=== PATIENT | male | born 1970 | race Caucasian/White ===

== ENCOUNTER 2017-05-28 07:45 | Emergency (ER) | payer SELFPAY ==
[~2017-05-28] VITALS: Ht 182.9 cm; Wt 102.0 kg
[~2017-05-28 07:45] MED LIST: AMOX/K CLAV875 M1 PO; AMOXICILLIN500 MG OR; DENIES CURRENT MEDS; LORTAB 10 PO; LORTAB 10-325 M1 TAB PO; MEDDOSEPAK PO; NAPROSYN500 MG PO; PREVACID30 M2 PO; ZITHROMAX250 MG PO; ZOFRAN ODT8 MG PO
[2017-05-28 08:38] LABS: HEMATOCRIT 48.6 % (39.0-50.0); IMMATURE GRANULOCYTES 0.4 % (0.0-1.0); MEAN CELL VOLUME 89.2 fL CALC (80.0-100.0); MEAN CORPUSCULAR HGB 31.2 pG CALC (26.0-32.0); NEUT# 7.1 thou/uL (1.82-7.42); RED BLOOD COUNT 5.45 mill/uL (4.70-6.10); RED CELL DISTRI WIDTH 12.5 % (11.5-15.5)
[2017-05-28 09:00] LABS: ALBUMIN 4.3 g/dL (3.2-5.0); ALKALINE PHOSPHATASE 62 u/l (38-126); ANION GAP 18 (6-22 (CALC)); BILIRUBIN, TOTAL 0.7 mg/dL (0.0-1.4); BUN 13 mg/dL (9-20); BUN/CREATININE RATIO 14 (12-20 (CALC)); CARBON DIOXIDE 27 mmol/l (22-30); CHLORIDE 102 mmol/l (95-108); CREATININE 0.9 mg/dL (0.7-1.3); GFR > 60 ML/MIN (>=60 (CALC)); GFR FOR AFR.AMER. > 60 ML/MIN (>=60 (CALC)); LIPASE 54 u/l (23-300); POTASSIUM 4.1 mmol/l (3.5-5.1); SGOT/AST 34 u/l (17-59); SGPT/ALT 55 u/l (21-72); SODIUM 143 mmol/l (137-146); TOTAL PROTEIN 8.1 g/dL (6.3-8.2)
[2017-05-28 10:15] LABS: URINE BILIRUBIN - DIPSTICK NEGATIVE (NEGATIVE); URINE BLOOD DIPSTICK NEGATIVE (NEGATIVE); URINE CLARITY CLEAR; URINE COLOR YELLOW; URINE GLUCOSE - DIPSTICK NEGATIVE (NEGATIVE); URINE KETONE NEGATIVE (NEGATIVE); URINE LEUK ESTERASE NEGATIVE (NEGATIVE); URINE NITRITE - DIPSTICK NEGATIVE (Negative); URINE PROTEIN - DIPSTICK NEGATIVE (NEG-TRACE); URINE UROBILINOGEN - DIPSTICK 0.2 E.U./dL (0.2)
[2017-05-28 10:18] VITALS: BP 117/77
[2017-05-28] MEDS ORDERED: RANITIDINE150 M1 PO (10:18)
== END 2017-05-28 10:23 | disposition home or self-care (01) | DRG 392 ==
LOC: ED 07:45
PROVIDERS: Family Medicine
DX: R10.84 Generalized abdominal pain (principal); F17.210 Nicotine dependence, cigarettes, uncomplicated
CPT/HCPCS: Q9967

== ENCOUNTER 2018-05-04 11:20 | Emergency (ER) | payer SELFPAY ==
[~2018-05-04] VITALS: Ht 182.9 cm; Wt 90.9 kg
[~2018-05-04 11:20] MED LIST changes: +RANITIDINE150 M1 PO
[2018-05-04] MEDS ORDERED: FLEXERIL PO (13:21)
[2018-05-04] MEDS ORDERED: PEPCID20 MG PO (13:21)
[2018-05-04] MEDS ORDERED: PREDNISONE20 MG PO (13:25)
[2018-05-04 13:30] VITALS: BP 131/84
== END 2018-05-04 13:30 | disposition home or self-care (01) | DRG 552 ==
LOC: ED 11:20
DX: S16.1XXA Strain of muscle, fascia and tendon at neck level, initial encounter (principal); M54.2 Cervicalgia; X50.3XXA Overexertion from repetitive movements, initial encounter; Y93.H3 Activity, building and construction; Y92.009 Unspecified place in unspecified non-institutional (private) residence as the place of occurrence of the external cause

== ENCOUNTER 2021-09-19 08:27 | Emergency (ER) | payer SELFPAY ==
[~2021-09-19] VITALS: Ht 182.9 cm; Wt 93.0 kg
[~2021-09-19 08:27] MED LIST changes: +FLEXERIL PO; +PEPCID20 MG PO; +PREDNISONE20 MG PO
[2021-09-19 08:33] VITALS: BP 137/91
[2021-09-19 08:39] VITALS: BP 137/91
[2021-09-19] MEDS ORDERED: MELOXICAM15 MG PO (10:47)
[2021-09-19] MEDS ORDERED: PREDNISONE20 MG PO (10:47)
[2021-09-19] MEDS ORDERED: CYCLOBENZAPRINE10 MG PO (10:47)
== END 2021-09-19 11:03 | disposition home or self-care (01) | DRG 556 ==
LOC: ED 08:27
DX: M25.511 Pain in right shoulder (principal); M62.838 Other muscle spasm; M54.6 Pain in thoracic spine; F17.210 Nicotine dependence, cigarettes, uncomplicated; W17.89XA Other fall from one level to another, initial encounter; Y93.44 Activity, trampolining; Y92.838 Other recreation area as the place of occurrence of the external cause